=== PATIENT | female | born 2005 | race Caucasian/White ===

== ENCOUNTER 2024-04-11 13:03 | Outpatient (AMB) | payer BC, SELFPAY ==
--- NOTE | 2024-04-11 13:07 | MHC.PC.OV ---
Vital Signs 04/11/24 13:13 Height 5 ft 4.33 in Weight 129 lb 2 oz BMI 21.9 BP 112/62 Blood Pressure Location Lt brachial Position Sitting Respiration 12 Pulse 91 Pulse Source Pulse Oximeter Temp 98.4 F Temp Source Oral Pulse Oximetry (%) 99 Oxygen Delivery Method Room Air Intake Visit Reasons: Est Care Intake Note: New patient visit [facility] Required: No Is last menstrual period known: Yes Last menstrual period: 03/28/24 Allergies No Known Allergies Allergy (Verified 04/11/24 13:11) Medication List - Last Reconciled 04/11/24 by Araseli Pruitt PA-C No Known Home Meds Tobacco use date assessed: 04/11/24 Dental Screening Dental Screen Date: 04/11/24 Did you have a dental visit in the last 12 months?: Yes Did you have a dental problem in the last 6 months where you did not have access to dental care?: No Was dental information given to patient?: Patient has dentist HPI Est Care HPI Details Pt is a 18 y/o female who presents today to establish care and for a cpe. No acute concerns today. No medical hx. Denies any issues with exercise. Has stayed busy all summer with work and travel. She is going to [employer] for dance and psychology. She wants to dance professionally. Waste Elimination: UTD, pap last year. [facility] Social History Housing: Other (Dorm) Patient Tobacco Use Status: Never used Tobacco e-Cigarette/Vaping Use: Never Used service: No Current occupational status: employed Current occupation: english teacher Current occupational exposures/hazards: No Cognitive needs: No Hearing needs: No Vision needs: No Female Reproductive History Menstrual Date of last menstrual period: 03/28/24 Questionnaire PHQ-9 Over the last 2 weeks, how often have you been bothered by any of the following problems? 1. Little interest or pleasure in doing things: not at all 2. Feeling down, depressed, or hopeless: not at all 3. Trouble falling or staying asleep, or sleeping too much: not at all 4. Feeling tired or having little energy: not at all 5. Poor appetite or overeating: not at all 6. Feeling bad about yourself - or that you are a failure or have let yourself or your family down: not at all 7. Trouble concentrating on things, such as reading the newspaper or watching television: not at all 8. Moving or speaking so slowly that other people could have noticed. Or the opposite - being so fidgety or restless that you have been moving around a lot more than usual: not at all 9. Thoughts that you would be better off or of hurting yourself in some way: not at all Total score: 0 Depression Screening Interpretation: Negative Depression Screening Done: Yes 85903 - PHQ-9 Billing: Yes Source: Developed by Drs. Yaya Alfonso, Alvaro Zuniga and colleagues, with an educational valdemar from [employer]. ERICK-7 AMB Questionnaire ERICK-7 Feeling nervous, anxious, or on edge: 0 = Not at all Not being able to stop or control worryin = Not at all Worrying too much about different things: 0 = Not at all Trouble relaxin = Not at all Being so restless that it is hard to sit still: 0 = Not at all Becoming easily annoyed or irritable: 0 = Not at all Feeling afraid as if something awful might happen: 0 = Not at all Total ERICK-7 score (0-4 normal; 5-9 mild; 10-14 moderate; 15-21 severe): 0 Source: Developed by Drs. Yaya Alfonso, Martha Alvarez, Alvaro Gage and colleagues, with an educational valdemar from [employer]. ERICK-7 Assessment Billing ERICK-7 Assessment Tool: ERICK-7 Assessment 41194 Physical exam (Primary Care) Vital Signs: Last Vital Signs Temp 98.4 F 04/11/24 13:13 Pulse 91 04/11/24 13:13 Resp 12 04/11/24 13:13 BP 112/62 04/11/24 13:13 Pulse Ox 99 04/11/24 13:13 Oxygen Delivery Method Room Air 04/11/24 13:13 BMI result Body Mass Index 21.9 Tobacco/Smoking Status: Tobacco use Status Tobacco use date assessed 04/11/24 04/11/24 13:15 Patient Tobacco Use Status Never used Tobacco 04/11/24 13:15 e-Cigarette/Vaping Use Never Used 04/11/24 13:15 Depression Screening Interpretation: Negative Const Orientation/consciousness: patient oriented x3 HENMT Ears: hearing grossly normal bilaterally and TM's normal bilaterally General nose exam: No nasal polyps present Face and sinus: Yes sinuses nontender Mouth: Normal oral and palatal mucosa present Eyes Pupils: Equal, round and reactive pupils present EOM: EOMs intact bilaterally Neck Neck: Yes full ROM and Yes no lymphadenopathy Thyroid: Thyroid normal Chest Chest palpation & inspection: normal inspection of the chest Resp Auscultation: clear to auscultation bilaterally Cardio Rate: regular rate Rhythm: regular rhythm Heart sounds: S1 normal heart sound present and S2 normal heart sound present Peripheral pulses: Peripheral pulses 2+ throughout GI Other: Soft, nontender Auscultation: normal bowel sounds Rectal Exam - Female: deferred General: Yes no CVA tenderness Back/Spine/Pelvis Other: Nontender Back: no CVA tenderness Skin General skin exam: no rashes or lesions noted Neuro General: patient oriented x3, gait normal, CN's II-XI intact bilaterally and deep tendon reflexes 2+ bilaterally Cranial nerves: Yes Equal, round and reactive pupils present Motor exam (neuro): 5/5 motor strength present throughout Sensory Exam: double simultaneous stimulation for sensation normal Coordination: [id number] test normal and Romberg test negative Extrem General: Yes normal to inspection and Yes full ROM Psych Affect: normal affect Attitude: cooperative Thought process: Normal thought process present Thought content: Normal thought content present Insight: Good insight present (Psych) Judgement: Good judgement present (Psych) Assessment and Plan Assessment & Plan (1) Routine general medical examination at a health care facility: Code(s): Z. - Encounter for general adult medical examination without abnormal findings Orders: Orders TSH reflex Free T4 Today Z00.00 - Encounter for general adult medical examination without abnormal findings Complete Blood Count Auto Diff Today Z00.00 - Encounter for general adult medical examination without abnormal findings Comprehensive [place]. Panel Fast Today Z00.00 - Encounter for general adult medical examination without abnormal findings Lipid Panel Today Z00.00 - Encounter for general adult medical examination without abnormal findings Coding Level of Care Code New Pt Prev Care 18-39yr(62997 Diagnoses Routine general medical examination at a health care facility Z00. Additional Codes ERIKC-7 Assessment Billing - ERICK-7 Assessment Tool: ERICK-7 Assessment 38630 ([id number])
[2024-04-11 13:13] VITALS: BP 112/62; PULSE 91; RESP 12; TEMP 36.9; O2SAT 99; BMI 21.9
== END 2024-04-11 15:05 | disposition home or self-care (01) ==
PROVIDERS: Visit Provider Physician Assistant
DX: Z00.00 Encounter for general adult medical examination without abnormal findings (principal)
CPT/HCPCS: 99385